=== PATIENT | male | born 1955 | race African-American/Black ===

== ENCOUNTER 2022-10-28 13:58 | Outpatient (CLI) | payer MEDICARE | END 2022-10-28 13:59 | disposition home or self-care (01) | LOC: BICMAMMO 13:58 | PROVIDERS: ATTEND Internal Medicine | DX: Z13.820 Encounter for screening for osteoporosis (principal); M85.89 Other specified disorders of bone density and structure, multiple sites | CPT/HCPCS: 77080 ==

== ENCOUNTER 2023-10-14 13:16 | Outpatient (CLI) | payer MEDICARE | END 2023-10-14 13:17 | disposition home or self-care (01) | LOC: BICMAMMO 13:16 | PROVIDERS: ATTEND Family Medicine | DX: Z13.820 Encounter for screening for osteoporosis (principal); M85.851 Other specified disorders of bone density and structure, right thigh; M85.852 Other specified disorders of bone density and structure, left thigh | CPT/HCPCS: 77080 ==

== ENCOUNTER 2024-11-03 14:41 | Outpatient (CLI) | payer MEDICARE | END 2024-11-03 14:42 | disposition home or self-care (01) | LOC: SCSMRI 14:41 | PROVIDERS: ATTEND Family Medicine | DX: M47.22 Other spondylosis with radiculopathy, cervical region (principal); M47.813 Spondylosis without myelopathy or radiculopathy, cervicothoracic region | CPT/HCPCS: 72141 ==